=== PATIENT | female | born 1990 | race Two or more races ===

== ENCOUNTER 2017-03-16 13:19 | Emergency (ER) | payer OTHER ==
[~2017-03-16] VITALS: Ht 172.7 cm; Wt 133.0 kg
[~2017-03-16 13:19] MED LIST: ACETAMINOPHEN500 MG PO; ENDOCET 5-3251 EACH PO; IBUPROFEN800 MG PO; LEXAPRO10 MG PO; MACROBID100 MG PO; NAPROSYN500 MG PO; NITROFURANTOIN100 MG PO; NUVARING VAGIN1 EACH VG; PRENATAL TABLE1 EAC3 PO; PYRIDIUM100 MG PO; TYLENOL EXTRA500 MG PO; ZOLOFT25 MG PO
[2017-03-16 14:39] LABS: HEMATOCRIT 39.1 % (36.0-46.0); MCH 29.5 PG (29.0-34.0); MCHC 33.8 G/DL (30.0-36.0); MCV 87.3 FL (83-99); MEAN PLAT.VOLUME 10.4 uM^3 (9.5-12.4); PLATELET COUNT 299 K/uL (156-360); RBC DIS.WIDTH-CV 13.6 % (11.8-14.6); RBC DIS.WIDTH-SD 43.7 % (39-53); RED BLOOD COUNT 4.48 M/uL (3.80-5.20); WHITE BLOOD COUNT 8.9 K/uL (4.1-10.2)
[2017-03-16 15:38] VITALS: BP 00/00
== END 2017-03-16 15:41 | disposition home or self-care (01) ==
LOC: EME 13:19
PROVIDERS: Physician Assistant
DX: N93.8 Other specified abnormal uterine and vaginal bleeding (principal); R53.1 Weakness; R42 Dizziness and giddiness; F17.200 Nicotine dependence, unspecified, uncomplicated
CPT/HCPCS: 84702; 85027; 99281; 99284

== ENCOUNTER 2017-07-28 20:56 | Emergency (ER) | payer OTHER ==
[~2017-07-28] VITALS: Ht 170.2 cm; Wt 129.0 kg
[2017-07-28 21:37] LABS: APPEARANCE CLEAR ((CLEAR)); BILIRUBIN NEGATIVE; BLOOD NEGATIVE; COLOR YELLOW ((YELLOW)); GLUCOSE (STRIP) NEGATIVE; KETONES NEGATIVE; LEUKOCYTES NEGATIVE; NITRITE NEGATIVE; PROTEIN (STRIP) NEGATIVE; SPECIFIC GRAVITY 1.015 (1.000-1.030); UCUL ADDED? NO; UROBILINOGEN 0.2 MG/DL (0.2-1.0)
[2017-07-28] MEDS ORDERED: METFORMIN HCL750 MG PO (21:50)
[2017-07-28] MEDS ORDERED: CALCIUM PO (21:51)
[2017-07-28] MEDS ORDERED: PRENATAL TABLE1 EAC3 PO (21:51)
[2017-07-28 21:57] LABS: HEMATOCRIT 39.3 % (36.0-46.0); MCH 29.6 PG (29.0-34.0); MCHC 33.1 G/DL (30.0-36.0); MCV 89.5 FL (83-99); PLATELET COUNT 261 K/uL (156-360); RBC DIS.WIDTH-CV 14.6 % (11.8-14.6); RBC DIS.WIDTH-SD 47.8 % (39-53); RED BLOOD COUNT 4.39 M/uL (3.80-5.20)
[2017-07-28 22:05] LABS: CHLORIDE 106 mEq/L (99-109); POTASSIUM 4.8 mEq/L (3.7-5.4); SODIUM 138 mEq/L (136-147)
[2017-07-28 22:07] LABS: GLUCOSE 92 mg/dL (70-99)
[2017-07-28 22:08] LABS: TOTAL PROTEIN 7.5 g/dL (6.4-8.3)
[2017-07-28 22:09] LABS: TOTAL BILIRUBIN 0.3 mg/dL (0.0-1.0)
[2017-07-28 22:11] LABS: ALKALINE PHOSPHATASE 56 IU/L (3-129); CREATININE 0.8 mg/dL (0.6-1.3); GFR ESTIMATE (CALCULATED) > 59 mL/min/
[2017-07-28 22:12] LABS: UREA NITROGEN (BUN) 13 mg/dL (9-23)
[2017-07-28 22:13] LABS: AST (GOT) 30 IU/L (2-34)
[2017-07-28 22:14] LABS: ALT (GPT) 49 IU/L (3-49)
[2017-07-28 22:20] LABS: QUANTITATIVE HCG 11019.3 MIU/ML
[2017-07-28 23:24] VITALS: BP 121/66
== END 2017-07-28 23:39 | disposition home or self-care (01) ==
LOC: EME 20:56
DX: O99.89 Other specified diseases and conditions complicating pregnancy, childbirth and the puerperium (principal); R10.2 Pelvic and perineal pain; R11.0 Nausea; Z88.0 Allergy status to penicillin; Z87.891 Personal history of nicotine dependence; Z3A.01 Less than 8 weeks gestation of pregnancy
CPT/HCPCS: 76801; 80053; 81003; 84702; 85027; 99281; 99284

== ENCOUNTER 2017-12-07 13:41 | Outpatient (CLI) | payer OTHER ==
[~2017-12-07] VITALS: Ht 172.7 cm; Wt 139.1 kg
[~2017-12-07 13:41] MED LIST changes: +CALCIUM PO; +METFORMIN HCL750 MG PO
[2017-12-07 14:24] LABS: HEMATOCRIT 33.2 % (36.0-46.0); HEMOGLOBIN 11.3 G/DL (11.9-15.5); MCH 29.4 PG (29.0-34.0); MCV 86.5 FL (83-99); PLATELET COUNT 239 K/uL (156-360); RBC DIS.WIDTH-CV 14.3 % (11.8-14.6); RBC DIS.WIDTH-SD 44.6 % (39-53); RED BLOOD COUNT 3.84 M/uL (3.80-5.20); WHITE BLOOD COUNT 10.2 K/uL (4.1-10.2)
[2017-12-07 14:53] LABS: ALBUMIN 3.4 G/DL (3.2-4.8); ALKALINE PHOSPHATASE 64 IU/L (3-129); ALT (GPT) 8 IU/L (3-49); AST (GOT) 10 IU/L (2-34); CHLORIDE 105 MEQ/L (99-109); CREATININE 0.5 MG/DL (0.6-1.3); GFR ESTIMATE (CALCULATED) > 59 mL/min/; GLUCOSE 136 mg/dL (70-99); POTASSIUM 3.8 MEQ/L (3.7-5.4); SODIUM 135 MEQ/L (136-147); TOTAL BILIRUBIN 0.2 MG/DL (0.0-1.0); TOTAL PROTEIN 6.6 G/DL (6.4-8.3); UREA NITROGEN (BUN) 11 mg/dL (9-23)
[2017-12-07 15:43] LABS: APPEARANCE CLEAR ((CLEAR)); BILIRUBIN NEGATIVE; BLOOD NEGATIVE; COLOR YELLOW ((YELLOW)); GLUCOSE (STRIP) NEGATIVE; KETONES NEGATIVE; LEUKOCYTES NEGATIVE; NITRITE NEGATIVE; PROTEIN (STRIP) NEGATIVE; SPECIFIC GRAVITY 1.013 (1.000-1.030); UCUL ADDED? NO; UROBILINOGEN 0.2 MG/DL (0.2-1.0)
[2017-12-07 16:48] LABS: TROP-I INTERPRETATION NEGATIVE; TROPONIN-I < 0.01 ng/mL (0.0-0.30)
[2017-12-07 17:46] LABS: TROP-I INTERPRETATION NEGATIVE; TROPONIN-I < 0.01 ng/mL (0.0-0.30)
[2017-12-07 20:32] VITALS: BP 138/64
[2017-12-07] MEDS ORDERED: ZOLOFT50 MG PO (20:48)
[2017-12-07] MEDS ORDERED: VITAMIN D2000 UNI1 PO (20:48)
[2017-12-07 21:01] VITALS: BP 132/70
== END 2017-12-07 21:05 | disposition home or self-care (01) ==
LOC: LDRP-OP 13:41 → EME 13:41 → EDSTATUS 20:05 → 2WEST 20:07
PROVIDERS: Physician Assistant Medical
DX: O26.892 Other specified pregnancy related conditions, second trimester (principal); Z3A.25 25 weeks gestation of pregnancy; R94.31 Abnormal electrocardiogram [ECG] [EKG]; R07.9 Chest pain, unspecified; Z88.0 Allergy status to penicillin
CPT/HCPCS: 59025; 71046; 71275; 80053; 81003; 84484; 85027; 85379; 93005; 93971; 99281; 99285; G0378; J7030

== ENCOUNTER 2017-12-12 13:09 | Outpatient (CLI) | payer OTHER ==
[~2017-12-12] VITALS: Ht 172.7 cm; Wt 137.2 kg
[~2017-12-12 13:09] MED LIST changes: +VITAMIN D2000 UNI1 PO; +ZOLOFT50 MG PO
[2017-12-12 13:47] VITALS: BP 125/57
[2017-12-12 14:03] VITALS: BP 129/59
[2017-12-12 14:10] LABS: BASOPHIL (%) 0.2 % (0-1); EOSINOPHIL (%) 0.9 % (0-5); EOSINOPHIL COUNT 0.1 K/uL (0-0.3); HEMOGLOBIN 11.4 G/DL (11.9-15.5); IMMATURE GRANULOCYTE (%) 0.4 % (0.0-0.7); LYMPHOCYTE (%) 14.3 % (15-42); LYMPHOCYTE COUNT 1.7 K/uL (1.0-2.8); MCH 29.2 PG (29.0-34.0); MCHC 33.5 G/DL (30.0-36.0); MONOCYTE (%) 5.9 % (3-12); MONOCYTE COUNT 0.7 K/uL (0-0.8); NEUTROPHIL (%) 78.3 % (45-76); PLATELET COUNT 240 K/uL (156-360); RBC DIS.WIDTH-CV 14.1 % (11.8-14.6); RBC DIS.WIDTH-SD 44.5 % (39-53); RED BLOOD COUNT 3.91 M/uL (3.80-5.20); WHITE BLOOD COUNT 11.5 K/uL (4.1-10.2)
[2017-12-12 14:18] VITALS: BP 117/56
[2017-12-12 14:21] LABS: ALBUMIN 3.6 g/dL (3.2-4.8)
[2017-12-12 14:22] LABS: APPEARANCE SL.HAZY ((CLEAR)); BILIRUBIN NEGATIVE; BLOOD NEGATIVE; CHLORIDE 104 mEq/L (99-109); COLOR YELLOW ((YELLOW)); GLUCOSE (STRIP) NEGATIVE; KETONES NEGATIVE; LEUKOCYTES NEGATIVE; NITRITE NEGATIVE; POTASSIUM 4.3 mEq/L (3.7-5.4); PROTEIN (STRIP) NEGATIVE; SODIUM 138 mEq/L (136-147); SPECIFIC GRAVITY 1.011 (1.000-1.030); UROBILINOGEN 0.2 MG/DL (0.2-1.0)
[2017-12-12 14:24] LABS: GLUCOSE 121 mg/dL (70-99); TOTAL PROTEIN 6.5 g/dL (6.4-8.3)
[2017-12-12 14:26] LABS: TOTAL BILIRUBIN 0.2 mg/dL (0.0-1.0)
[2017-12-12 14:27] LABS: ALKALINE PHOSPHATASE 70 IU/L (3-129)
[2017-12-12 14:28] LABS: CREATININE 0.6 mg/dL (0.6-1.3); GFR ESTIMATE (CALCULATED) > 59 mL/min/
[2017-12-12 14:29] LABS: AST (GOT) 10 IU/L (2-34); UREA NITROGEN (BUN) 9 mg/dL (9-23)
[2017-12-12 14:30] LABS: ALT (GPT) 11 IU/L (3-49)
[2017-12-12 14:31] LABS: BACTERIA RARE /HPF; EPITHELIAL CELLS 1+ /HPF; MUCUS TRACE /LPF; RED BLOOD CELLS 0-5 /HPF (0-5); WHITE BLOOD CELLS 0-5 /HPF (0-5)
[2017-12-12 14:33] VITALS: BP 119/58
[2017-12-12 14:45] LABS: UR CREATININE CONCENTRATION 58.5 MG/DL
[2017-12-12 14:48] VITALS: BP 118/58
[2017-12-12 15:03] VITALS: BP 120/57
== END 2017-12-12 17:05 | disposition home or self-care (01) ==
LOC: LDRP-OP 13:09 → 2WEST 13:10 → LDRP-OP 04-25 21:22
PROVIDERS: Midwife
DX: O26.892 Other specified pregnancy related conditions, second trimester (principal); R03.0 Elevated blood-pressure reading, without diagnosis of hypertension; R00.0 Tachycardia, unspecified; R42 Dizziness and giddiness; O99.282 Endocrine, nutritional and metabolic diseases complicating pregnancy, second trimester; E28.2 Polycystic ovarian syndrome; O99.342 Other mental disorders complicating pregnancy, second trimester; F32.9 Major depressive disorder, single episode, unspecified; F41.9 Anxiety disorder, unspecified; O34.219 Maternal care for unspecified type scar from previous cesarean delivery; O99.212 Obesity complicating pregnancy, second trimester; Z87.891 Personal history of nicotine dependence; Z3A.26 26 weeks gestation of pregnancy
CPT/HCPCS: 59025; 80053; 81003; 82570; 84156; 85025; 87086; G0378